=== PATIENT | female | born 1990 | race Caucasian/White ===

== ENCOUNTER 2023-06-04 08:56 | Emergency (ER) | payer OTHER ==
[2023-06-04 09:30] VITALS: BP 122/72; PULSE 95; RESP 16; TEMP 98.5; BMI 38.9
[2023-06-04] MEDS ORDERED: oxyCODONE HCL 5 MG TABLET ONE (09:59)
[2023-06-04] MEDS ORDERED: IBUPROFEN 600 MG TABLET (FP) PO ONE (09:59)
[2023-06-04] MEDS ORDERED: LIDOCAINE 2.5%/PRILOCAINE 2.5% (5 Gram/TUBE) TP ONE (09:59)
[2023-06-04] MEDS: LIDOCAINE 2.5%/PRILOCAINE 2.5% (5 Gram/TUBE) TP ONE (10:03)
[2023-06-04] MEDS: IBUPROFEN 600 MG TABLET (FP) PO ONE (10:05)
[2023-06-04] MEDS: oxyCODONE HCL 5 MG TABLET PO ONE (10:05)
== END 2023-06-04 13:05 | disposition home or self-care (01) ==
LOC: JER 08:56
PROC: 0H97XZZ Drainage of Abdomen Skin, External Approach (ICD-10-PCS; principal; 2023-06-04)
DX: L02.211 Cutaneous abscess of abdominal wall (principal)
CPT/HCPCS: 76705-TC; 87070; 87186; 87205; 99284-25